=== PATIENT | male | born 1955 | race African-American/Black ===

== ENCOUNTER 2018-01-07 08:22 | Emergency (ER) | payer BC ==
[2018-01-07] MEDS ORDERED: ONDANSETRON 4 MG/2 ML VIAL IVPUSH ONE (08:53)
[2018-01-07] MEDS ORDERED: SODIUM CHLORIDE 0.9% 1000 ML INFUS.BAG IV ONE (08:53)
--- NOTE | 2018-01-07 08:53 | PDOC ---
Attending Attestation - HPI HPI: 01/07/18 09:07 The patient is a 62 year old male, with a significant PMH of hypertension and hypercholesterolemia, who presents to the emergency department with 6 episodes of emesis (non bloody, non bilious) beginning this morning. The patient reports intermittent dizziness beginning this morning upon waking up in bed. The patient reports the dizziness as a room spinning sensation and states the dizziness last for around 2-3 minutes at a time. The patient states the room spinning sensation is worse while lying down and improves while sitting up. The patient reports he notified EMS for transport to the hospital after the 6 episodes of emesis. The patient denies chest pain, shortness of breath, headache. Denies fever, chills, diarrhea and constipation. Denies dysuria, frequency, urgency and hematuria. Allergies: pollen extracts Documentation prepared by Man Perez, acting as lead medical technologist for Arvin Costa MD. - Physicial Exam PE: 01/07/18 09:10 Vitals: Triage vital signs reviewed General Appearance: No acute distress, well nourished, well developed Head: Atraumatic Eyes: Pupils equal reactive round, extraocular movement intact Neck: Supple; No nuchal rigidity Chest Wall: Nontender Cardiac: Regular rate and rhythm, no murmurs, no rubs, no gallops Lungs: Clear to auscultation bilateral, good air movement bilaterally Abdomen: Soft, nondistended, normal bowel sounds, nontender to palpation Rectal: Exam deferred Extremities: Full range of motion to all extremities, no cyanosis, clubbing, or edema Skin: Warm and dry, no rashes or lesions, no rash, no petechiae Neuro: AOX3; Cranial Nerves 2-12 grossly intact, Strength intact to all extremities, Sensation intact to all extremities, gait normal Psych: Normal mood, normal affect - Medical Decision Making 01/07/18 09:16 The patient is a 62 year old male, with a significant PMH of hypertension and hypercholesterolemia, who presents to the emergency department with intermittent dizziness and 6 episodes of emesis (non bloody, non bilious) beginning this morning. Plan: Labs, EKG, Head CT without contrast. <Man Perez - Last Filed: 01/07/18 10:11> - Resident Resident Name: Evin Oliver - ED Attending Attestation I have performed the following: I have examined & evaluated the patient, The case was reviewed & discussed with the resident, I agree w/resident's findings & plan, Exceptions are as noted - Medical Decision Making Sudden onset vertigo associated with vomiting this morning. Appears to be positional nature. Differential diagnosis includes laboratory tightness positional vertigo versus central process We'll treat with IV fluids meclizine Zofran obtain CT check labs EKG troponin performed Donna-Hallpike test observe and reassess Reevaluation 12:30 no significant acute findings on laboratory analysis her head CT status post IV fluids Zofran and meclizine patient feels completely better no longer complaining of vertigo ambulating comfortably with steady gait around the emergency department. At this time based on resolution of symptoms lower suspicion for central process. Case discussed with patient's primary care provider . Provide patient with neurology follow-up patient will follow-up with his primary care provision this week she will return to ED for any severe worsening symptoms or for any concerns. <Arvin Costa - Last Filed: 01/07/18 12:58> Heart Score/ECG Review - ECG Impressions Comment:: 01/07/18 12:57 12:58 PM EKG sinus rhythm [address] elevations or T-wave inversions inferior laterally Interpreted by me <Arvin Costa - Last Filed: 01/07/18 12:58>
[2018-01-07] MEDS ORDERED: ONDANSETRON 4 MG/2 ML VIAL ONE (09:05)
[2018-01-07 09:07] VITALS: BMI 26.7
[2018-01-07] MEDS ORDERED: MECLIZINE HCL 25 MG TABLET (FP) PO ONE (09:07)
--- NOTE | 2018-01-07 09:07 | PDOC ---
History of Present Illness - General Chief Complaint: Nausea/Vomiting Stated Complaint: VOMITING Time Seen by Provider: 01/07/18 08:28 History Source: Patient Exam Limitations: No Limitations - History of Present Illness Initial Comments: 01/07/18 08:52 62M with pmh of hypertension and hypercholesterolemia BIBEMS after 6 episodes of vomiting and dizziness since waking up this morning. He states that the room was spinning around him. Symptoms come and go and he states he felt better after vomiting. No one else sick at home, is currently abroad. Denies headache, chest pain and shortness of breath. Never had those symptoms before. 01/07/18 09:24 Past History - Past Medical History Allergies/Adverse Reactions: Allergies Allergy/AdvReac Type Severity Reaction Status Date / Time pollen extracts Allergy Verified 01/07/18 08:37 Home Medications: Ambulatory Orders Aspirin 81 mg PO DAILY 01/07/18 Brimonidine Tartrate [Alphagan 0.15% -] 1 drop OD TID 01/07/18 Cetirizine HCl [Zyrtec -] 10 mg PO DAILY 01/07/18 Cholecalciferol (Vitamin D3) [Vitamin D] 2,000 unit PO DAILY 01/07/18 Enalapril Maleate [Vasotec] 10 mg PO DAILY 01/07/18 Finasteride 5 mg PO DAILY 01/07/18 Fluticasone Prop 0.05% Nasal [Flonase -] 1 - 2 spray NS DAILY 01/07/18 Meclizine HCl [Antivert -] 25 mg PO DAILY PRN #30 tablet 01/07/18 Montelukast Na [Singulair -] 10 mg PO HS 01/07/18 Naproxen Sodium [Aleve] 220 mg PO BID 01/07/18 Rosuvastatin [Crestor -] 5 mg PO HS 01/07/18 Tamsulosin HCl 0.4 mg PO DAILY 01/07/18 Asthma: Yes CVA: No COPD: No DVT: No Dementia: No GI Disorders: Yes (BPH) HTN: Yes Hypercholesterolemia: Yes - Immunization History Immunization Up to Date: Yes - Suicide/Smoking/Psychosocial Hx Smoking History: Never smoked Have you smoked in the past 12 months: No Information on smoking cessation initiated: No Hx Alcohol Use: No Drug/Substance Use Hx: No Substance Use Type: None Review of Systems - Review of Systems Able to Perform ROS?: Yes Is the patient limited Syriac proficient: No Constitutional: No: Symptoms Reported HEENTM: No: Eye Pain, Blurred Vision, Recent change in vision, Double Vision, Cataracts, Hearing Loss Respiratory: No: Symptoms reported Cardiac (ROS): No: Symptoms Reported ABD/GI: No: Symptoms Reported : No: Symptoms Reported Musculoskeletal: No: Symptoms Reported Integumentary: No: Symptoms Reported Neurological: Yes: See HPI. No: Headache, Numbness, Paresthesia All Other Systems: Reviewed and Negative *Physical Exam - Vital Signs Last Vital Signs Temp Pulse Resp BP Pulse Ox 97.5 F L 60 17 154/95 100 01/07/18 08:37 01/07/18 08:37 01/07/18 08:37 01/07/18 08:37 01/07/18 08:37 - Physical Exam General Appearance: Yes: Nourished, Appropriately Dressed, Mild Distress HEENT: positive: EOMI, LOREE, Normal ENT Inspection, Other (very mild/minor nystagmus on Donna-Hallpike) Respiratory/Chest: positive: Lungs Clear, Normal Breath Sounds. negative: Chest Tender, Respiratory Distress Cardiovascular: positive: Regular Rhythm, Regular Rate, S1, S2 Gastrointestinal/Abdominal: positive: Normal Bowel Sounds, Soft. negative: Tender, Pulsatile Mass Extremity: positive: Normal Capillary Refill, Normal Inspection, Normal Range of Motion Integumentary: positive: Normal Color, Dry, Warm Neurologic: positive: Fully Oriented, Alert, Normal Mood/Affect, Normal Response , Motor Strength 5/5, Finger to Nose ED Treatment Course - LABORATORY CBC & Chemistry Diagram: 01/07/18 09:15 01/07/18 09:15 Medical Decision Making - Medical Decision Making 01/07/18 09:46 62M with pmh of htn present with vomiting and vertigo this morning. Differential diagnosis includes peripheral vs central vertigo, labyrinthitis, Meniere'sm gastroenteritis Fairland-Hallpike maneuver exacerbated the patient's symptoms, with minor nystagmus. EKG was significant for incomplete right bundle branch block and T wave abdnomality and bradycardia. Will send for troponins. Ct head pending. 01/07/18 12:35 CT head: No acute intracranial hemorrhage, mass effects or hydrocephalus. Nonspecific hypoattenuation in the right frontal horn periventricular white matter is likely attributed to mild microvascular ischemia. This is then peripheral vertigo due to presentation and resolution of symptoms after meclizine. Will discharge with follow up with PCP and prescription for Meclizine. 01/07/18 12:41 *DC/Admit/Observation/Transfer Diagnosis at time of Disposition: Peripheral vertigo, unspecified - Discharge Dispostion Disposition: HOME Condition at time of disposition: Improved Admit: No - Referrals - Patient Instructions Printed Discharge Instructions: Benign Paroxysmal Positional Vertigo, DI for Benign Paroxysmal Positional Vertigo Additional Instructions: Follow up with your primary doctor within 2-3 days. Come back to the ER for any new, worsening or concerning symptom. - Post Discharge Activity
[2018-01-07] MEDS ORDERED: MECLIZINE HCL 25 MG TABLET (FP) ONE (09:19)
[2018-01-07 09:24] LABS: BASO % 0.5 % (0-2.0); EOS % 0.1 % (0-4.5); MCH 32.7 pg (25.7-33.7); MCHC 34.1 g/dl (32.0-35.9); MEAN CELL VOLUME 95.9 fl (80-96); MEAN PLT VOLUME 9.7 fl (7.5-11.1); MONO % 3.7 % (3.8-10.2); NEUT % 83.7 % (42.8-82.8); PLATELET COUNT 115 K/MM3 (134-434); RBC 3.97 M/mm3 (4.00-5.60); WHITE BLOOD COUNT 7.8 K/mm3 (4.0-10.0)
[2018-01-07 09:48] LABS: ALBUMIN 4.1 g/dl (3.4-5.0); ANION GAP 5 (8-16); BLOOD UREA NITROGEN 24 mg/dL (7-18); CALCIUM 9.4 mg/dL (8.5-10.1); CHLORIDE 109 mmol/L (98-107); CO2 28 mmol/L (21-32); CREATININE 1.2 mg/dL (0.7-1.3); GLUCOSE,RANDOM 149 mg/dL (74-106); POTASSIUM 4.5 mmol/L (3.5-5.1); SGOT/AST 24 U/L (15-37); SGPT/ALT 42 U/L (12-78); SODIUM 142 mmol/L (136-145); TOT PROT 7.2 g/dl (6.4-8.2)
[2018-01-07 09:51] LABS: ALK PHOS 70 U/L (45-117)
[2018-01-07 14:40] VITALS: BP 140/81; PULSE 71; TEMP 98.2
== END 2018-01-07 13:35 | disposition home or self-care (01) ==
LOC: JER 08:22
PROC: 3E033GC Introduction of Other Therapeutic Substance into Peripheral Vein, Percutaneous Approach (ICD-10-PCS; principal; 2018-01-07)
DX: H81.399 Other peripheral vertigo, unspecified ear (principal); I10 Essential (primary) hypertension; E78.00 Pure hypercholesterolemia, unspecified; J45.909 Unspecified asthma, uncomplicated; N40.0 Benign prostatic hyperplasia without lower urinary tract symptoms; Z79.82 Long term (current) use of aspirin
CPT/HCPCS: 36415; 70450-TC; 80053; 82550; 82553; 84484; 85025; 99284-25; J7030